=== PATIENT | male | born 1935 | race Caucasian/White ===

== ENCOUNTER 2016-07-18 02:18 | Emergency (ER) | payer MEDICARE, OTHER ==
[2016-07-18] VITALS (10 sets, daily range): BP systolic 95–139; BP diastolic 57–78; PULSE 53–98; RESP 16–20; O2SAT 96–99
[~2016-07-18] VITALS: Ht 190.5 cm; Wt 97.7 kg
[~2016-07-18 02:18] MED LIST: ABIR250T PO; ASPI-973 PO; ATEN50TA PO; ATOR40TA69 PO; CLOP75TA28 PO; HYDR25TA4 PO; LISI10TA PO; POTA10TA PO; PRD5T PO; ZOM4I IV; [UNRECOGNIZED DRUG - CODE] IM
--- NOTE | 2016-07-18 02:24 | ED.REPORT ---
HPI-General Illness Date of Service Jul 18, 2016 ED Provider: Romero Ching MD Patient is a 81 year old male with a history of metastatic prostate adenocarcinoma, coronary artery disease s/p stenting of the LAD, hypertension, diabetes mellitus, and paroxysmal atrial fibrillation on Plavix who presents to the ED after he developed chest palpitations at 4:30pm yesterday. He reports associated chest pain with left arm radiation after onset of symptoms, lasting for 15 minutes. He has not had any chest pain since that time. His current symptoms feel similar to when he was previously in atrial fibrillation. The patient has never previously been cardioverted, as he has always spontaneously converted after 3-6 hours. The patient has not had anything to eat since this morning. He denies any back pain, shortness of breath, nausea, vomiting, or fever. The patient also takes 81mg aspirin daily. Nursing Notes Stated Complaint: RAPID HEART RATE Nursing Notes Reviewed: Yes Allergies: Coded Allergies: Cephalosporins (Verified Allergy, Severe, 05/22/16) Sulfa (Sulfonamide Antibiotics) (Verified Allergy, Severe, 05/22/16) Scheduled Abiraterone Acetate (Zytiga) 250 Mg Tablet 1,000 MG PO QAM Aspirin (Aspirin) 81 Mg Tablet 81 MG PO DAILY Atenolol (Atenolol) 50 Mg Tablet 50 MG PO HS Atorvastatin Calcium (Atorvastatin Calcium) 40 Mg Tablet 40 MG PO HS Clopidogrel (Clopidogrel) 75 Mg Tablet 75 MG PO DAILY Hydrochlorothiazide (Hydrochlorothiazide) 25 Mg Tablet 25 MG PO DAILY Leuprolide Acetate (Lupron Depot) 22.5 Mg Disp.syrin 22.5 MG IM Q3 MONTHS Lisinopril (Lisinopril) 10 Mg Tablet 10 MG PO QAM Potassium Chloride ER (K-Tab) 10 Meq Tablet 10 MEQ PO DAILY Prednisone (PredniSONE) 5 Mg Tab 5 MG PO BID Zoledronic Acid (Zometa) 4 Mg/5 Ml Vial 4 MG IV Q3 MONTHS General Time Seen by MD: 02:24 Chief Complaint Other (palpitations) Hx Obtained From: Patient Arrived By: Walk-in Sudden in Onset?: No Onset Occurred: 46 - 59 minutes ago Symptom Duration: Since onset Location: : Chest Quality: Painful Severity: Current: No pain currently Severity: Maximum: Mild Recent Healthcare: No recent doctor visit, No recent hospitalization Similar Sx Previous: Yes Past Medical History Past Medical History Metastatic prostate cancer Diabetes Hypertension Paroxsymal Atrial fibrillation CAD s/p stenting Past Surgical History Leg fracture repair Cardiac stenting to LAD Smoking History Never Smoker Social History Alcohol Use: 1-3 per week Other Social History: Good social support, , Local resident Ambulatory Status Independent Review of Systems Full Review of Systems Constitutional: Denies: Fever Respiratory: Denies: Shortness of breath Cardiovascular: Reports: Chest pain, Palpitations GI: Denies: Nausea, Vomiting Musculoskeletal: Reports: Extremity pain, Denies: Back pain Complete sys rev & neg: except as marked. Physical Exam Vital Signs Vital Signs Date Time Temp Pulse Resp B/P Pulse Ox O2 Delivery O2 Flow Rate FiO2 07/18/16 06:36 53 16 139/66 99 Nasal Cannula 2 07/18/16 05:00 55 16 122/65 98 07/18/16 04:30 68 16 103/60 98 Nasal Cannula 2 07/18/16 04:15 68 16 102/63 99 Nasal Cannula 2 07/18/16 04:00 74 16 111/64 98 Nasal Cannula 2 07/18/16 03:30 64 16 104/60 98 Nasal Cannula 2 07/18/16 03:16 72 16 95/57 99 Nasal Cannula 2 07/18/16 02:56 72 16 107/70 98 Nasal Cannula 07/18/16 02:46 75 20 125/78 96 Room Air 07/18/16 02:28 36.2 98 20 133/69 97 Room Air Initial VS: Reviewed Abdomen / GI: Soft, Non-tender, No distention Skin: Warm, Dry, No cyanosis Neurologic: Alert, Oriented, Nonfocal Psychiatric: Mood/affect normal, Behavior normal, Normal thought content General/Constitutional: Awake, Alert, No acute distress, Well hydrated Appearance / Presentation: Positive: Obese Head / Eyes: Atraumatic, Normocephalic, PERRL ENT: Airway patent, Mucous membranes moist Neck: Supple, No JVD Respiratory / Chest: Breath sounds NL, Breath sounds = bilat, No respiratory distress, No rales, No rhonchi, No wheezing Cardiovascular: Heart rate NL, No gallop, No murmurs, No rubs Heart Rate / Rhythm: Positive: Irregular rhythm Upper Extremities Upper Extremity / MS: No swelling, No edema Lower Extremity / Pelvis / MS: No swelling, No edema Interpretation & Diagnostics Lab Results Interpretation Result Diagram: 07/18/1622907/18/16229 Test 07/18/16 02:30 07/18/16 05:17 White Blood Count 3.8th/mm3 (3.8-10.1) Red Blood Count 4.40mil/mm3 (4.40-5.80) Hemoglobin 12.5g/dL (13.8-17.2) Hematocrit 38.3% (41.0-50.0) Mean Corpuscular Volume 87.0fL (81-100) Mean Corpuscular Hemoglobin 28.4pg (27.0-35.0) Mean Corpuscular Hemoglobin Concent 32.6% (32.0-37.0) Red Cell Distribution Width 14.6% (12.3-15.4) Platelet Count 171bil/L (150-400) Neutrophils (%) (Auto) 50.4% (40-74) Lymphocytes (%) (Auto) 24.3% (14-46) Monocytes (%) (Auto) 20.5% (4-12) Eosinophils (%) (Auto) 3.7% (0-5) Basophils (%) (Auto) 0.8% (0-3) Prothrombin Time 10.3sec (8.1-12.5) Prothromb Time International Ratio 0.96ratio Activated Partial Thromboplast Time 26.1sec (22.8-33.0) Sodium Level 143mEq/L (134-144) Potassium Level 3.9mEq/L (3.5-5.2) Chloride Level 107mEq/L (97-108) Carbon Dioxide Level 24mmol/L (18-29) Blood Urea Nitrogen 12mg/dL (8-27) Creatinine 0.96mg/dL (0.76-1.27) Estimat Glomerular Filtration Rate 80mL/min (>59) Glucose Level 114mg/dL (60-99) Calcium Level 8.5mg/dL (8.5-10.1) Magnesium Level 2.2mg/dL (1.6-2.6) Total Bilirubin 0.6mg/dL (0.0-1.2) Aspartate Amino Transf (AST/SGOT) 27U/L (0-50) Alanine Aminotransferase (ALT/SGPT) 22U/L (0-44) Alkaline Phosphatase 75U/L (25-160) Pro-B-Type Natriuretic Peptide 1823pg/mL (0-486) Total Protein 6.3g/dL (6.4-8.4) Albumin 3.6g/dL (3.4-5.0) Troponin T 0.010ug/L (0.0-0.011) ECG Interpretation ECG Interpretation: Atrial flutter, with 3:1 variable conduction changed from prior EKG Time: 02:40 Interpreted by: ED physician Normal ECG Interpretation: No acute ischemic changes ECG Interpretation: Ectopic atrial rhythm, Rate 55 Time: 05:21 Interpreted by: ED physician Normal ECG Interpretation: No acute ischemic changes X-Ray Chest Interpretation Chest Xray Interpretation: Impression: No acute cardiopulmonary process. View: Portable Interpretation / Wet Read by: Wet read ED physician Re-Eval/Medical Decision Med Decision/Clinical Course 81-year-old with recurrent paroxysmal atrial flutter, whose baseline rhythm most recently has been an ectopic atrial rhythm, presents in atrial flutter. He had about a fifteen minute episode of some chest discomfort that resolved spontaneously. His palpitations continue, and he can document the time of onset fairly precisely, within the last six hours.. He is not required cardioversion, as he is converted spontaneously after single dose of diltiazem. He is negative by enzymes and by EKG 2. Discharged in stable condition. Altered with PCP ALEJO. May benefit from meds to regulate His rate Source of Hx: Old records Time of Eval: 04:17 Re-Evaluation/Progress Note: Rechecked the patient, who is still in atrial fibrillation. He will be given additional time to see if he converts. Time of Eval: 05:09 Patient Status: Condition improved Re-Evaluation/Progress Note: Patient has now converted into a normal sinus rhythm. Patient is sleeping comfortably in the ED. He was informed that a repeat EKG will be taken and repeat Troponin prior to discharge. Time of Eval: 06:15 Patient Status: Condition improved Re-Evaluation/Progress Note: Patient understands and agrees with the plan to be discharged home. Discharge instructions and follow-up discussed. All questions were addressed. Return to the ED warnings given. Counseled Regarding: Diagnosis, Lab results, Need for follow-up, When/why to return to ED Discharge & Departure Primary Impression: Paroxysmal atrial flutter Disposition: Home Discharge Condition All VS Reviewed: Yes Condition: Stable Patient Instructions: Atrial Flutter (ED) Referrals: Roney Cain MD (PCP) Mario Alberto Attestation Portions of this note were transcribed by Aliza Saavedra. I, Dr. Ching personally performed the history, physical exam and medical decision-making; I reviewed and confirmed the accuracy of the information in the transcribed note. Signed by: Mario Alberto Bowling, 07/18/2016 0546 copies to: Roney Cain MD, Christopher W MD Jul 18, 2016 02:24 Aliza Saavedra Jul 18, 2016 02:37
[2016-07-18] MEDS ORDERED: Diltiazem 5 mg/mL 5 mL Inj IVPUSH ONE (02:40)
[2016-07-18 03:01] LABS: BASOPHILS % (AUTO) 0.8 % (0-3); EOSINOPHILS % (AUTO) 3.7 % (0-5); MONOCYTES % (AUTO) 20.5 % (4-12); Mean Corpuscular Hemoglobin 28.4 pg (27.0-35.0); NEUTROPHILS % (AUTO) 50.4 % (40-74); Platelet Count 171 bil/L (150-400)
[2016-07-18 03:17] LABS: INR 0.96 ratio
[2016-07-18 03:26] LABS: TROPONIN T 0.01 ug/L (0.0-0.011)
[2016-07-18 03:37] LABS: Magnesium 2.2 mg/dL (1.6-2.6)
--- NOTE | 2016-07-18 08:52 | DRSVH ---
PROCEDURE: X-RAY CHEST ONE VIEW, PORTABLE ([id number]) INDICATIONS: palpitations TECHNIQUE: One view of the chest was acquired. COMPARISON: [facility], NM, NM BONE SCAN WHOLE BODY, 01/25/2016, 13:06. [facility], CR, XR CHEST 1VW (PORTABLE), 05/22/2016, 13:45. FINDINGS: Surgical changes and devices: None. Lungs and pleura: No pleural effusions or pneumothorax. Lungs are clear. Mediastinum: Mediastinal contours appear normal. Heart size is normal. Bones and chest wall: No suspicious bony lesions. Overlying soft tissues appear unremarkable. Sameer tic bony and metastatic disease again noted involving the right first anterior rib. IMPRESSION: 1. 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 2. No acute cardiopulmonary process identified. Dictated by: Henry NELSON Interpreted: Luis Fernando Myers MD on 07/18/2016 at 8:50 Transcribed by: CELINA on 07/18/2016 at 8:51 Approved by: Parish Myers M.D. on 07/18/2016 at 9:27
[2016-10-04] MEDS ORDERED: WARF5TAB7 PO (10:56)
[2016-10-04] MEDS ORDERED: AMIO200T PO (10:56)
== END 2016-07-18 06:26 | disposition home or self-care (01) ==
LOC: SED 02:18
DX: I48.92 Unspecified atrial flutter (principal); I25.10 Atherosclerotic heart disease of native coronary artery without angina pectoris; I10 Essential (primary) hypertension; E11.9 Type 2 diabetes mellitus without complications; I48.0 Paroxysmal atrial fibrillation; Z85.46 Personal history of malignant neoplasm of prostate; Z95.818 Presence of other cardiac implants and grafts; Z79.02 Long term (current) use of antithrombotics/antiplatelets; Z79.82 Long term (current) use of aspirin; Z88.1 Allergy status to other antibiotic agents; Z88.2 Allergy status to sulfonamides